=== PATIENT | female | born 1955 | race Caucasian/White ===

== ENCOUNTER → 2017-01-16 | Outpatient (CLI) | payer BC ==
[~2017-01-16] MED LIST: ASPIR 8181 MG PO; LIPITOR10 MG PO; LISINOPRIL10 M1 PO; LOSARTAN POTASS25 M1 PO; SINGULAIR10 M1 PO; Synthroid,Lev100 MCG PO; VITAMIN D-32000 UNIT PO; ZANTAC150 MG PO; [UNRECOGNIZED DRUG - OTHER] INTRAOC
[2017-01-16 09:50] VITALS: BP 146/79
[2017-01-17 11:18] VITALS: BP 146/79
[2017-01-18 11:10] VITALS: BP 136/71
== END | disposition home or self-care (01) ==
LOC: INJECTION 09:30
DX: N39.0 Urinary tract infection, site not specified (principal)

== ENCOUNTER → 2018-01-28 | Outpatient (CLI) | payer BC ==
[~2018-01-28] MED LIST changes: +HYDR25T PO
== END | disposition home or self-care (01) ==
LOC: RAD 13:39
DX: M41.9 Scoliosis, unspecified (principal)

== ENCOUNTER → 2020-07-12 | Outpatient (CLI) | payer BC | END | disposition home or self-care (01) | LOC: COVID19 00:29 | PROVIDERS: ATTEND Internal Medicine Nephrology | DX: U07.1 COVID-19 (principal) ==

== ENCOUNTER → 2023-05-07 | Outpatient (CLI) | payer MEDICARE, OTHER | END | disposition home or self-care (01) | LOC: US 01:28 | PROVIDERS: ATTEND Internal Medicine Nephrology | DX: M25.471 Effusion, right ankle (principal); M79.661 Pain in right lower leg ==

== ENCOUNTER → 2023-05-29 | Outpatient (CLI) | payer MEDICARE, OTHER | END | disposition home or self-care (01) | LOC: MRI 00:08 | PROVIDERS: ATTEND Orthopaedic Surgery | DX: S82.491A Other fracture of shaft of right fibula, initial encounter for closed fracture (principal); R93.5 Abnormal findings on diagnostic imaging of other abdominal regions, including retroperitoneum; S93.401A Sprain of unspecified ligament of right ankle, initial encounter; M65.871 Other synovitis and tenosynovitis, right ankle and foot; X58.XXXA Exposure to other specified factors, initial encounter; Y93.89 Activity, other specified; Y92.89 Other specified places as the place of occurrence of the external cause; Y99.8 Other external cause status ==

== ENCOUNTER → 2023-06-27 | Outpatient (CLI) | payer MEDICARE, OTHER | END | disposition home or self-care (01) | LOC: RAD 00:36 | PROVIDERS: ATTEND Internal Medicine Nephrology | DX: S82.891A Other fracture of right lower leg, initial encounter for closed fracture (principal); I10 Essential (primary) hypertension; E55.9 Vitamin D deficiency, unspecified; N95.9 Unspecified menopausal and perimenopausal disorder; E16.2 Hypoglycemia, unspecified; X58.XXXA Exposure to other specified factors, initial encounter; Y93.89 Activity, other specified; Y92.89 Other specified places as the place of occurrence of the external cause; Y99.8 Other external cause status ==

== ENCOUNTER → 2024-10-15 | Outpatient (CLI) | payer MEDICARE, OTHER ==
[2024-10-15 14:59] LABS: BASO # 0.1 10*3/uL (0.0-0.1); BASO % 0.8 % (0.0-1.0); EOS # 0.2 10*3/uL (0.0-0.4); EOS % 2.6 % (1.0-4.0); HEMATOCRIT 41.5 % (37.0-47.0); MEAN CORPUSCULAR HGB 32.9 pg (27.0-31.0); MEAN CORPUSCULAR HGB CONC 33.3 g/dl (33.0-37.0); MEAN PLATELET VOLUME 9.7 fl (9.6-12.3); MONO # 0.7 10*3/uL (0.1-1.0); MONO % 12.1 % (3.0-9.0); NEUT # 3.3 10*3/uL (2.3-7.9); PLATELET COUNT AUTOMATED 227 10*3/uL (130-400); RED BLOOD COUNT 4.19 10*6/uL (4.10-5.10); RED CELL DISTRI WIDTH 12.3 % (0-14.5); WHITE BLOOD COUNT 6.1 10*3/uL (4.8-10.8)
[2024-10-15 15:20] LABS: ALKALINE PHOSPHATASE 55 U/L (46-116); BUN 19 mg/dl (9-23); CHLORIDE 96 mmol/L (98-107); CHOLESTEROL 280 mg/dL (<200); FREE T4 1.56 ng/dl (0.89-1.76); LDL CHOLESTEROL 186 mg/dL (9-159); POTASSIUM 3.7 mmol/L (3.4-5.1); SGPT/ALT 30 U/L (5-49); TOTAL PROTEIN 7.6 gm/dL (6.0-8.0); TRIGLYCERIDES 103 mg/dl (<150); VITAMIN D, 25-HYDROXY 91.5 ng/mL (30-100)
== END | disposition home or self-care (01) ==
LOC: LAB 14:31
PROVIDERS: ATTEND Internal Medicine Nephrology
DX: I10 Essential (primary) hypertension (principal); E78.5 Hyperlipidemia, unspecified; E55.9 Vitamin D deficiency, unspecified; E87.1 Hypo-osmolality and hyponatremia; Z78.9 Other specified health status